=== PATIENT | male | born 1970 | race Two or more races ===

== ENCOUNTER 2017-04-05 16:54 | Emergency (ER) | payer MEDICAID, OTHER ==
[~2017-04-05] VITALS: Ht 172.7 cm; Wt 73.0 kg
[2017-04-05] MEDS ORDERED: SODIUM CHLORIDE 0.9% 1,000 ML IV ONE (21:42)
[2017-04-05] MEDS ORDERED: ONDANSETRON HCL 4MG/2ML VIAL IV STA (21:42)
[2017-04-05] MEDS ORDERED: MORPHINE SULFATE 4 MG/ML CPJ (NOT FOR IM USE) IV STA (21:42)
[2017-04-05] MEDS ORDERED: VANCOMYCIN 1,250 MG in DEXT 5% WATER 250 ML IV SCH (22:00)
[2017-04-05 22:08] LABS: BASOPHILS % 0.4 % (0.0-2.0); EOSINOPHILS % 1.3 % (0.0-5.0); HEMATOCRIT. 35.8 % (42.0-52.0); HEMOGLOBIN. 12.4 g/dL (14.0-18.0); LYMPHOCYTES % 15.8 % (20.0-50.0); MEAN CORPUSCULAR HEMOGLOBIN 31.4 pg (28.0-32.0); MEAN CORPUSCULAR VOLUME 90.7 fL (80.0-94.0); MEAN PLATELET VOLUME 8.5 fl (7.4-10.4); MONOCYTES % 7.2 % (2.0-8.0); NEUTROPHILS % 75.3 % (40.0-76.0); PLATELET 240 x1000/uL (130-400); RED BLOOD CELL COUNT 3.95 mill/uL (4.7-6.1); RED CELL DISTRIBUTION WIDTH 12.9 % (11.6-14.6)
[2017-04-05 22:26] LABS: CARBON DIOXIDE 26 mEq/L (21-32); CHLORIDE 107 mEq/L (98-107)
[2017-04-05] MEDS ORDERED: TETANUS, DIPHTHERIA, PERTUSSIS VAC/PF 0.5ML (>7YR OLD) IM ONE (22:30)
[2017-04-05] MEDS: VANCOMYCIN 1,250 MG in SODIUM CHLORIDE 0.9% 250 ML IV SCH (22:42)
[2017-04-05] MEDS ORDERED: MORPHINE SULFATE 4 MG/ML CPJ (NOT FOR IM USE) IV ONE (23:30)
[2017-04-06] MEDS ORDERED: MORPHINE SULFATE 4 MG/ML CPJ (NOT FOR IM USE) IV SCH (05:15)
[2017-04-06] MEDS ORDERED: HYDROCODONE/ACETAMINOPHEN 5/325MG TABLET PO ONE (09:30)
[2017-04-06] MEDS: VANCOMYCIN 1,250 MG in SODIUM CHLORIDE 0.9% 250 ML IV SCH (10:19)
[2017-04-06 13:01] VITALS: BP 129/87
[2017-04-06] MEDS ORDERED: ACETAMINOPHEN 500MG TABLET PO ONE (13:15)
== END 2017-04-06 13:41 | disposition left against medical advice (07) ==
LOC: ER 17:57
DX: L03.113 Cellulitis of right upper limb (principal); F17.210 Nicotine dependence, cigarettes, uncomplicated
CPT/HCPCS: 36415; 73130; 80053; 83605; 85025; 90471; 90715; 96365; 96366; 96375; 96376; 99285; J2270; J2405; J3370; J7030; J7050; J7060

== ENCOUNTER 2022-02-25 05:05 | Emergency (ER) | payer OTHER ==
[~2022-02-25] VITALS: Ht 185.4 cm; Wt 146.0 kg
[2022-02-25] MEDS ORDERED: LORAZEPAM 2MG/ML CPJ IV ONE ×3 (05:30→08:15)
[2022-02-25 06:26] LABS: BASOPHILS % 0.5 % (0.0-2.0); HEMATOCRIT. 43.6 % (42.0-52.0); HEMOGLOBIN. 14.9 g/dL (14.0-18.0); LYMPHOCYTES % 29.4 % (20.0-50.0); MEAN CORPUSCULAR HEMOGLOBIN 31.8 pg (28.0-32.0); MEAN CORPUSCULAR VOLUME 93.1 fL (80.0-94.0); MONOCYTES % 6.2 % (2.0-8.0); NEUTROPHILS % 60.9 % (40.0-76.0); PLATELET 271 x1000/uL (130-400); RED BLOOD CELL COUNT 4.68 mill/uL (4.7-6.1); RED CELL DISTRIBUTION WIDTH 13.7 % (11.6-14.6)
[2022-02-25 06:48] LABS: CLARITY URINE CLOUDY (CLEAR); COLOR URINE YELLOW (YELLOW); KETONES URINE NEGATIVE (NEGATIVE); LEUKOCYTE ESTERASE URINE NEGATIVE (NEGATIVE); NITRITE URINE NEGATIVE (NEGATIVE); OCCULT BLOOD URINE NEGATIVE (NEGATIVE); PH URINE 5.5 (4.5-8.0); PROTEIN URINE 2+ (NEGATIVE); SPECIFIC GRAVITY URINE 1.025 (1.005-1.030); UROBILINOGEN URINE 0.2 E.U./dL (0.2-1.0)
[2022-02-25 06:48] LABS: ETHANOL BLOOD < 10 mg/dL
[2022-02-25 07:15] LABS: *AMPHETAMINES SCREEN URINE PRESUMTIVE POSITIVE (NEGATIVE); *BARBITURATES SCREEN URINE NEGATIVE (NEGATIVE); *BENZODIAZEPINES SCREEN URINE NEGATIVE (NEGATIVE); *COCAINE SCREEN URINE NEGATIVE (NEGATIVE); CANNABINOID URINE SCREEN PRESUMTIVE POSITIVE (NEGATIVE); METHADONE URINE SCREEN NEGATIVE (NEGATIVE); OPIATES URINE SCREEN NEGATIVE (NEGATIVE); PHENCYCLIDINE URINE SCREEN NEGATIVE (NEGATIVE)
[2022-02-25] MEDS ORDERED: SODIUM CHLORIDE 0.9% 1,000 ML IV ONE ×2 (08:15→10:15)
[2022-02-25 09:19] LABS: CHLORIDE 109 mEq/L (98-107)
[2022-02-25] MEDS ORDERED: LORAZEPAM 2MG/ML CPJ IV NR (10:15)
[2022-02-25] MEDS ORDERED: ONDANSETRON HCL 4MG/2ML INJ IV ONE (11:45)
[2022-02-25] MEDS ORDERED: KETOROLAC 30MG/ML VIAL IV ONE (12:00)
[2022-02-25] MEDS ORDERED: IPRATROPIUM/ALBUTEROL 0.5-3(2.5)MG/3ML NEB HHN PRN (14:30)
[2022-02-25] MEDS ORDERED: LORAZEPAM 0.5MG TABLET PO PRN (14:30)
[2022-02-25] MEDS ORDERED: KETOROLAC 30MG/ML VIAL IV NR (14:30)
[2022-02-25] MEDS ORDERED: CLONIDINE 0.1MG TABLET PO PRN (14:30)
[2022-02-25] MEDS ORDERED: ACETAMINOPHEN 325MG TABLET PO PRN ×2 (14:30)
[2022-02-25] MEDS ORDERED: THIAMINE HCL 100MG TABLET PO SCH (14:30)
[2022-02-25] MEDS ORDERED: ONDANSETRON HCL 4MG/2ML INJ IV PRN (14:30)
[2022-02-25] MEDS ORDERED: SODIUM CHLORIDE 0.9% 1,000 ML IV SCH (14:30)
[2022-02-25] MEDS ORDERED: DOCUSATE SODIUM 100MG CAPSULE PO PRN (14:30)
[2022-02-25] MEDS ORDERED: FOLIC ACID 1MG TABLET PO SCH (14:30)
[2022-02-25 15:56] LABS: PHOSPHORUS 2.3 mg/dL (2.5-4.9)
[2022-02-25 16:00] VITALS: BP 141/73
[2022-02-25 16:07] LABS: HDL CHOLESTEROL 37 mg/dL (40-59); LDL CHOLESTEROL 85 mg/dL (5-100)
[2022-02-28 18:46] LABS: FOLIC ACID (FOLATE) SERUM 9.1 ng/mL (>5.38)
== END 2022-02-25 17:00 | disposition left against medical advice (07) ==
LOC: ER 05:05 → CANBEDREQ 18:14
DX: G92.9 Unspecified toxic encephalopathy (principal); R00.0 Tachycardia, unspecified; N17.9 Acute kidney failure, unspecified; R73.9 Hyperglycemia, unspecified; R74.01 Elevation of levels of liver transaminase levels; R82.71 Bacteriuria; F19.10 Other psychoactive substance abuse, uncomplicated
CPT/HCPCS: 36415; 70450; 71045; 80053; 80061; 80305; 80320; 81003; 82140; 82607; 82746; 82962; 83036; 83735; 84100; 84443; 84481; 84484; 85025; 93005; 96361; 96374; 96375; 96376; 99285; J1885; J2060; J7030; Z7610; G0480